=== PATIENT | male | born 1975 | race Hispanic/Latino ===

== ENCOUNTER → 2021-03-17 | Emergency (ER) | payer OTHER ==
[~2021-03-17] MED LIST: FLUORESCEIN SODIUM 1 STRIP STRIP ONE; HYDROCODONE/ACETAMINOPHEN 5/325 MG TAB ONE; PREDNISOLONE 1% DROPS OD SCH; TETRACAINE HCL 0.5% 4 ML OPHTH SOLN ONE
== END ==
LOC: EDH 14:16
DX: H20.9 Unspecified iridocyclitis (principal); E11.9 Type 2 diabetes mellitus without complications
CPT/HCPCS: 70480; 99284; J7510

== ENCOUNTER 2021-09-22 19:07 | Inpatient (IN) | payer OTHER ==
[~2021-09-22] VITALS: Ht 175.3 cm; Wt 70.7 kg
[2021-09-22 19:25] LABS: BASOPHILS % (AUTO) 0.4 % (0.0-5.0); EOSINOPHILS % (AUTO) 0.6 % (0.0-8.0); HEMATOCRIT 40.6 % (42-54); MEAN CORPUSCULAR HEMOGLOBIN 28.4 pg (27.0-33.0); MEAN CORPUSCULAR HGB CONC 34.5 g/dL (32.0-36.0); MEAN CORPUSCULAR VOLUME 82.4 fL (79-99); MONOCYTES % (AUTO) 6.3 % (3.0-13.0); NEUTROPHILS % (AUTO) 53.4 % (40.0-77.0); PLATELET COUNT (AUTO) 215 K/uL (130-400); RED BLOOD CELL COUNT(AUTO) 4.93 MIL/uL (4.50-6.20); RED CELL DISTRIBUTION WIDTH 12.6 % (11.0-15.5)
[2021-09-22 19:30] LABS: APPEARANCE,URINE Clear (CLEAR); BILIRUBIN,URINE Negative (NEGATIVE); COLOR,URINE Yellow (YELLOW); GLUCOSE, URINE (UA) >=1000 mg/dL (NEGATIVE); KETONES,URINE 15 mg/dL (NEGATIVE); LEUKOCYTE ESTERASE ,URINE Negative (NEGATIVE); NITRATE,URINE Negative (NEGATIVE); OCCULT BLOOD,URINE Negative (NEGATIVE); PH,URINE 5.5 (5.0-8.0); PROTEIN,URINE Negative (NEGATIVE); UROBILINOGEN,URINE 0.2 mg/dL (0.2-1.0)
[2021-09-22 19:38] LABS: RBC,URINE 0-1 /HPF (0-1); WBC,URINE 0-1 /HPF (0-1)
[2021-09-22 19:39] LABS: BACTERIA,URINE None Seen /HPF (None Seen); SQUAMOUS EPITHELIAL CELL,UR None Seen /HPF (0-2)
[2021-09-22 20:05] LABS: ALBUMIN 3.9 g/dL (3.5-5.0); BILIRUBIN,TOTAL 0.3 mg/dL (0.2-1.0); CREATININE 1.1 mg/dL (0.5-1.5); POTASSIUM 4.2 mmol/L (3.5-5.1); TOTAL PROTEIN, SERUM 7.5 g/dL (6.0-8.3)
[2021-09-22] MEDS ORDERED: INSULIN REGULAR, HUMAN 3ML 100 UNIT in 0.9%NACL 100ML 99 ML IV PRN ×4 (21:30→22:00)
[2021-09-22] MEDS ORDERED: 0.9%NACL 1000ML 1,000 ML IV SCH ×2 (21:30→22:00)
[2021-09-22 21:53] LABS: ABG OXYGEN SATURATION 91.3 % (95.0-99.0); BASE EXCESS,VENOUS BLOOD GAS -0.9 (-2.0-3.0); HCO3,VENOUS BLOOD GAS 23.3 (21.0-28.0); PCO2,VENOUS BLOOD GAS 37 (35-48); PH,VENOUS BLOOD GAS 7.413 (7.350-7.450)
[2021-09-22] MEDS ORDERED: 0.9%NACL 100ML 100 ML ONE (22:00)
[2021-09-22] MEDS ORDERED: ONDANSETRON 4MG INJ IV PRN (22:00)
[2021-09-22] MEDS ORDERED: DEXTROSE 5 %-0.45 % NACL 1,000 ML IV PRN (22:00)
[2021-09-22] MEDS ORDERED: NITROGLYCERIN 0.4 MG SL TAB SL PRN (22:00)
[2021-09-22] MEDS ORDERED: PHARMACY COMMUNICATION MISC SCH (22:00)
[2021-09-22] MEDS ORDERED: INSULIN HUMULIN R 100 UNIT/ML 3ML IV SCH (22:00)
[2021-09-22] MEDS ORDERED: ACETAMINOPHEN 325 MG TAB PO PRN ×2 (22:00)
[2021-09-22] MEDS ORDERED: [UNRECOGNIZED DRUG - OTHER] IV ONE (22:00)
[2021-09-22] MEDS ORDERED: INSULIN HUMULIN R 100 UNIT/ML 3ML ONE (22:02)
[2021-09-22] MEDS ORDERED: 1/2 NS 1000ML 1,000 ML IV SCH ×3 (22:30→23:30)
[2021-09-22 22:57] LABS: HEMOGLOBIN A1C 12.7 % (4.0-6.0)
[2021-09-22] MEDS: DEXTROSE 5 %-0.45 % NACL 1,000 ML IV PRN (23:08)
[2021-09-22 23:31] LABS: MAGNESIUM 1.7 mg/dL (1.80-2.40)
[2021-09-22 23:34] LABS: INR 0.99 (0.85-1.15); PROTHROMBIN TIME 10.8 SEC (9.6-11.6)
[2021-09-22 23:35] LABS: PARTIAL THROMBOPLASTIN TIME 24.2 SEC (26.3-35.5)
[2021-09-22] MEDS ORDERED: MAGNESIUM 2GM PREMIX 50ML 50 ML IV ONE (23:51)
[2021-09-23] VITALS (12 sets, daily range): BP systolic 100–124; BP diastolic 63–79
[2021-09-23] MEDS ORDERED: MAGNESIUM 2GM PREMIX 50ML 50 ML IV SCH
[2021-09-23 01:08] LABS: CREATININE 0.6 mg/dL (0.5-1.5); MAGNESIUM 2.2 mg/dL (1.80-2.40)
[2021-09-23 01:11] LABS: POTASSIUM 2.9 mmol/L (3.5-5.1)
[2021-09-23] MEDS: POTASSIUM CHLORIDE 10MEQ/100ML 100 ML IV PRN ×2 (01:48→03:02)
[2021-09-23 04:21] LABS: BASOPHILS % (AUTO) 0.4 % (0.0-5.0); EOSINOPHILS % (AUTO) 1.7 % (0.0-8.0); HEMATOCRIT 35.2 % (42-54); LYMPHOCYTES % (AUTO) 47.6 % (21.0-51.0); MEAN CORPUSCULAR HEMOGLOBIN 29.1 pg (27.0-33.0); MEAN CORPUSCULAR HGB CONC 34.9 g/dL (32.0-36.0); MEAN CORPUSCULAR VOLUME 83.4 fL (79-99); MONOCYTES % (AUTO) 8.4 % (3.0-13.0); NEUTROPHILS % (AUTO) 41.8 % (40.0-77.0); PLATELET COUNT (AUTO) 168 K/uL (130-400); RED BLOOD CELL COUNT(AUTO) 4.22 MIL/uL (4.50-6.20); RED CELL DISTRIBUTION WIDTH 12.6 % (11.0-15.5); WHITE BLOOD COUNT (AUTO) 7.2 K/uL (4.8-10.8)
[2021-09-23 04:30] LABS: CREATININE 0.6 mg/dL (0.5-1.5); POTASSIUM 3.2 mmol/L (3.5-5.1)
[2021-09-23 04:34] LABS: MAGNESIUM 2.1 mg/dL (1.80-2.40)
[2021-09-23 04:38] LABS: ABG HCO3 20.7 mmol/L (21.0-28.0); ABG OXYGEN SATURATION 97.7 % (95.0-99.0); ABG PCO2 37 mmHg (35-48)
[2021-09-23] MEDS ORDERED: POTASSIUM CHLORIDE 10MEQ/100ML 200 ML IV ONE (04:45)
[2021-09-23] MEDS: DEXTROSE 5 %-0.45 % NACL 1,000 ML IV PRN (04:48)
[2021-09-23] MEDS ORDERED: FAMOTIDINE 20MG VIAL IV SCH ×2 (09:00)
[2021-09-23] MEDS: ENOXAPARIN SODIUM 40 MG/0.4 ML SYRINGE SQ SCH (09:00)
[2021-09-23] MEDS ORDERED: INSULIN GLARGINE 100 UNITS/ML 10 ML VIAL SQ SCH (10:00)
[2021-09-23 10:28] LABS: CREATININE 0.7 mg/dL (0.5-1.5); MAGNESIUM 2.1 mg/dL (1.80-2.40); POTASSIUM 3.8 mmol/L (3.5-5.1)
[2021-09-23] MEDS: INSULIN HUMULIN R 100 UNIT/ML 3ML SQ SCH ×4 (12:38→21:00)
[2021-09-23] MEDS: INSULIN GLARGINE 100 UNITS/ML 10 ML VIAL SQ SCH (21:08)
[2021-09-24 00:08] VITALS: BP 116/75
[2021-09-24 04:08] VITALS: BP 113/75
[2021-09-24] MEDS: INSULIN HUMULIN R 100 UNIT/ML 3ML SQ SCH ×6 (06:17→17:24)
[2021-09-24] MEDS: INSULIN GLARGINE 100 UNITS/ML 10 ML VIAL SQ SCH (06:18)
[2021-09-24 08:28] VITALS: BP 106/71
[2021-09-24] MEDS: ENOXAPARIN SODIUM 40 MG/0.4 ML SYRINGE SQ SCH (09:00)
[2021-09-24 11:33] VITALS: BP 111/76
[2021-09-24 17:11] VITALS: BP 118/78
== END 2021-09-24 19:15 | disposition home or self-care (01) | DRG 639 ==
LOC: EDH 19:07 → EDHIP 21:49 → 2DH 09-23 08:02 → 3BH 09-23 22:33
PROVIDERS: ADMIT Internal Medicine; ATTEND Internal Medicine
DX: E11.10 Type 2 diabetes mellitus with ketoacidosis without coma (principal); E87.6 Hypokalemia; E83.42 Hypomagnesemia; E11.65 Type 2 diabetes mellitus with hyperglycemia; Z20.822 Contact with and (suspected) exposure to COVID-19; Z79.4 Long term (current) use of insulin; Z83.3 Family history of diabetes mellitus
CPT/HCPCS: 36415; 36600; 80048; 80053; 80061; 81001; 82010; 82150; 82550; 82803; 82948; 83036; 83690; 83735; 83874; 83930; 85025; 85610; 85730; 87635; 93005; G0378; J1650; J1815; J3475; J7030; J7042